=== PATIENT | female | born 1955 | race Caucasian/White ===

== ENCOUNTER 2023-04-24 13:53 | Emergency (ER) | payer OTHER, MEDICAID ==
[~2023-04-24] VITALS: Ht 134.6 cm; Wt 63.0 kg
[2023-04-24 14:13] VITALS: O2SAT 98
[2023-04-24] MEDS ORDERED: IBUPROFEN 600MG TABLET PO ONE (16:15)
[2023-04-24] MEDS ORDERED: CYCLOBENZAPRINE 10MG TABLET PO ONE (16:15)
[2023-04-24] MEDS ORDERED: METH-653 MT (17:20)
[2023-04-24] MEDS ORDERED: IBUP-2029 MT (17:20)
[2023-04-24 17:58] VITALS: BP 153/87; PULSE 72; RESP 18; TEMP 98.2
== END 2023-04-24 18:00 | disposition home or self-care (01) ==
LOC: ER 13:53
DX: M54.2 Cervicalgia (principal); M25.511 Pain in right shoulder
CPT/HCPCS: 73030; 99284